=== PATIENT | male | born 1970 | race Caucasian/White ===

== ENCOUNTER 2021-05-16 23:35 | Emergency (ER) | payer OTHER, SELFPAY ==
--- NOTE | 2021-05-16 23:50 | ER ---
Nurse's Notes [facility] Name: Cedric Carrizales Age: 50 yrs Sex: Male : 1970 Arrival Date: 05/16/2021 Time: 23:38 Bed 8 Private MD: Diagnosis: Dog bite to right forearm Presentation: 05/16 23:48 Chief complaint: Patient states: he was bit by his dog approx 30 minutes ago receiving bb puncture wounds to the right forearm. Coronavirus screen: At this time, the client does not indicate any symptoms associated with coronavirus-19. Ebola Screen: No symptoms or risks identified at this time. Initial Sepsis Screen: Does the patient meet any 2 criteria? No. Patient's initial sepsis screen is negative. Does the patient have a suspected source of infection? No. Patient's initial sepsis screen is negative. Risk Assessment: Do you want to hurt yourself or someone else? Patient reports no desire to harm self or others. Onset of symptoms was May 16, 2021. 23:48 Method Of Arrival: Ambulatory bb 23:48 Acuity: KELSIE 5 bb Triage Assessment: 23:49 Bite description: bite sustained to right arm by a dog, animal information: bb vaccination(s) is current. General: Appears in no apparent distress. Behavior is calm, cooperative. Pain: Complains of pain in right arm Pain currently is 3 out of 10 on a pain scale. Neuro: Level of Consciousness is awake, alert, obeys commands, Oriented to person, place, time, situation. Cardiovascular: Capillary refill < 3 seconds Patient's skin is warm and dry. Respiratory: Airway is patent Respiratory effort is even, unlabored, Respiratory pattern is regular. GI: No signs and/or symptoms were reported involving the gastrointestinal system. Derm: Skin is pink, warm \T\ dry. Wound noted right arm. Musculoskeletal: Circulation, motion, and sensation intact. Historical: - Allergies: 23:49 Codeine; bb - Home Meds: 23:49 losartan-hydrochlorothiazide oral [Active]; bb - PMHx: 23:49 Hypertensive disorder; bb - PSHx: 23:49 Vasectomy; bb - Immunization history:: Adult Immunizations up to date, Last tetanus immunization: < 5 years ago. - Social history:: Smoking status: Patient denies any tobacco usage or history of. Screenin/11 00:11 Abuse screen: Denies threats or abuse. Nutritional screening: No deficits noted. bb Tuberculosis screening: No symptoms or risk factors identified. Fall Risk None identified. Assessment: 00:08 Reassessment: No changes from previously documented assessment. wounds cleansed with bb betadine, antibiotic ointment applied, covered with non-adherent pad, kerlix and kylie wrap pt tolerated well. [place] [employer] at bedside. Pt verbalized understanding of and agrees to plan of care discharge instructions given pt ambulated with steady gait to exit. Vital Signs: 05/16 23:48 BP 156 / 88; Pulse 81; Resp 16 S; Temp 98.9(O); Pulse Ox 98% on R/A; Weight 88.45 kg bb (R); Height 5 ft. 10 in. (177.80 cm) (R); Pain 3/10; 23:48 Body Mass Index 27.98 (88.45 kg, 177.80 cm) bb ED Course: 23:38 Patient arrived in ED. cf2 23:41 Hudson Campos MD is Attending Physician. sp3 23:49 Triage completed. bb 23:49 Arm band placed on Patient placed in an exam room, on a stretcher, on pulse oximetry. bb 23:54 Seble Mahmood RN is Primary Nurse. dc2 05/17 00:11 Patient has correct armband on for positive identification. bb 00:11 No provider procedures requiring assistance completed. Patient did not have IV access bb during this emergency room visit. 00:11 Wound care: to puncture located on right arm was cleaned with Betadine, dressed with bb Neosporin, Kerlix, kylie wrap. Administered Medications: No medications were administered Outcome: 05/16 23:49 Discharge ordered by . sp3 05/17 00:11 Discharged to home ambulatory. bb Condition: stable Discharge instructions given to patient, Instructed on discharge instructions, follow up and referral plans. medication usage, wound care, Demonstrated understanding of instructions, follow-up care, medications, wound care, Prescriptions given X 1. 00:13 Patient left the ED. bb Signatures: Shadia King RN RN bb Chris De cf2 Hudson Campos MD MD sp3 Seble Mahmood RN RN dc2
--- NOTE | 2021-05-16 23:50 | EDPHYS ---
Physician Documentation [facility] Name: Cedric Carrizales Age: 50 yrs Sex: Male : 1970 Arrival Date: 05/16/2021 Time: 23:38 Bed 8 Private MD: ED Physician Hudson Campos HPI: 05/16 23:46 This 50 yrs old Male presents to ER via Unassigned with complaints of Dog sp3 Bite. 23:46 50-year-old male with history of hypertension presents to the ED for single dog bite to sp3 the right forearm after trying to restrain dog from getting it adult food. Dog has not previously done this but has had all of his vaccinations. Patient states he has 2 wounds in his right forearm. Patient has no pain on active range of motion complains of no numbness or tingling states that the amount of bleeding was minimal. Last tetanus was approximately 2 years ago.. Historical: - Allergies: 23:49 Codeine; bb - Home Meds: 23:49 losartan-hydrochlorothiazide oral [Active]; bb - PMHx: 23:49 Hypertensive disorder; bb - PSHx: 23:49 Vasectomy; bb - Immunization history:: Adult Immunizations up to date, Last tetanus immunization: < 5 years ago. - Social history:: Smoking status: Patient denies any tobacco usage or history of. ROS: 23:47 Constitutional: Negative for fever, chills, and weight loss, Eyes: Negative for injury, sp3 pain, redness, and discharge, Neck: Negative for injury, pain, and swelling, Cardiovascular: Negative for chest pain, palpitations, and edema, Respiratory: Negative for shortness of breath, cough, wheezing, and pleuritic chest pain, Abdomen/GI: Negative for abdominal pain, nausea, vomiting, diarrhea, and constipation, Back: Negative for injury and pain, Neuro: Negative for headache, weakness, numbness, tingling, and seizure, Allergy/Immunology: Negative for hives, rash, and allergies, Endocrine: Negative for neck swelling, polydipsia, polyuria, polyphagia, and marked weight changes. 23:47 All other systems are negative. Exam: 23:47 Constitutional: This is a well developed, well nourished patient who is awake, alert, sp3 and in no acute distress. 23:47 Skin: 2 puncture type wounds present 1 and 0.5 cm and the other 0.2 cm without visualization of tendons. Patient examined and full range of motion. Neurovascular exam distal to the wounds are normal including radial pulse, capillary refill. Patient can make an okay sign without difficulty.. Vital Signs: 23:48 BP 156 / 88; Pulse 81; Resp 16 S; Temp 98.9(O); Pulse Ox 98% on R/A; Weight 88.45 kg bb (R); Height 5 ft. 10 in. (177.80 cm) (R); Pain 09/13; 23:48 Body Mass Index 27.98 (88.45 kg, 177.80 cm) bb MDM: 23:48 Data reviewed: vital signs, nurses notes. ED course: Clean and dress wounds without sp3 repair at this time. I have discussed with patient risks and concerns for flexor tenosynovitis and signs and symptoms to return to the ED. Will place patient on Augmentin and have him follow-up with his PCP.. 23:49 Patient medically screened. sp3 05/16 23:51 Order name: Wound Care sp3 Administered Medications: No medications were administered Disposition Summary: 05/16/21 23:49 Discharge Ordered Location: Home sp3 Condition: Stable sp3 Diagnosis - Dog bite to right forearm sp3 Followup: sp3 - With: Private Physician - When: As needed - Reason: Continuance of care Discharge Instructions: - Discharge Summary Sheet sp3 - Animal Bite, Adult sp3 Forms: - Medication Reconciliation Form sp3 - Thank You Letter sp3 - Antibiotic Education sp3 - Prescription Opioid Use sp3 Prescriptions: - Augmentin 875-125 mg Oral Tablet - take 1 tablet by ORAL route every 12 hours for 10 days; 20 tablet; Refills: 0, sp3 Product Selection Permitted Signatures: Shadia King RN RN Hudson Pena MD MD sp3
[2021-05-17 00:53] VITALS: BP 156/88; TEMP 98.9; O2SAT 98
== END 2021-05-17 00:13 | disposition home or self-care (01) ==
LOC: ER 23:35
DX: S51.851A Open bite of right forearm, initial encounter (principal); W54.0XXA Bitten by dog, initial encounter; Y93.89 Activity, other specified; Y92.9 Unspecified place or not applicable; Z88.6 Allergy status to analgesic agent; I10 Essential (primary) hypertension
CPT/HCPCS: 99283

== ENCOUNTER 2022-09-05 00:23 | Observation (INO) | payer OTHER ==
[2022-09-05] MEDS ORDERED: METOPROLOL TARTRATE 5 MG/5 ML INJ IV ONE (00:54)
[2022-09-05] MEDS ORDERED: NA CHLORIDE 0.9% 1,000 ML ONE ×2 (00:55→01:56)
[2022-09-05] MEDS ORDERED: ASPIRIN 81 MG CHEWABLE TABLET ONE (00:59)
[2022-09-05 01:29] LABS: Absolute Lymphocytes (CBC) 2.7 K/uL (0.7-4.9); Hematocrit 45.8 % (39.6-49.0); Lymphocytes % 32.6 % (15.3-44.8); MCV 90.2 fL (80-100); RBC Red Blood Cell Count 5.08 M/uL (4.33-5.43)
[2022-09-05 01:34] LABS: SARS-CoV-2 Antigen Rapid Res Negative (Negative)
[2022-09-05 01:47] LABS: Bilirubin Direct 0.2 mg/dL (0-0.2); Bilirubin Total 1.4 mg/dL (0.2-1.0); Magnesium 2.4 mg/dL (1.6-2.4); Potassium 3.2 mmol/L (3.5-5.1); Protein, Total 7.2 g/dL (6.4-8.2); Thyroid Stimulating Hormone 2.68 uIU/mL (0.358-3.740); Troponin High Sensitivity 7.5 pg/mL (<58.9)
[2022-09-05] MEDS ORDERED: POTASSIUM 25 MEQ EFFERV TAB ONE (01:56)
[2022-09-05] MEDS ORDERED: DIGOXIN 0.25 MG/ML AMP ONE (01:58)
--- NOTE | 2022-09-05 02:00 | ER ---
Nurse's Notes [facility] Name: Cedric Carrizales Age: 52 yrs Sex: Male : 1970 Arrival Date: 09/05/2022 Time: 00:25 Bed 5 Private MD: Diagnosis: Unspecified atrial fibrillation-New onset Presentation: 09/05 00:45 Chief complaint: Patient states: i worked out around 2100 and about an hour later i lg3 started feeling like my heart was fluttering and having palpitations. denies chest pain, N/V. Coronavirus screen: Client denies travel out of the [place] in the last 14 days. At this time, the client does not indicate any symptoms associated with coronavirus-19. Ebola Screen: No symptoms or risks identified at this time. Initial Sepsis Screen: Does the patient meet any 2 criteria? No. Patient's initial sepsis screen is negative. Does the patient have a suspected source of infection? No. Patient's initial sepsis screen is negative. Risk Assessment: Do you want to hurt yourself or someone else? Patient reports no desire to harm self or others. Onset of symptoms was September 04, 2022 at 22:00. 00:45 Method Of Arrival: Ambulatory lg3 00:45 Acuity: KELSIE 2 lg3 Triage Assessment: 00:47 General: Appears in no apparent distress. uncomfortable, Behavior is cooperative, lg3 anxious. Pain: Denies pain. EENT: No deficits noted. No signs and/or symptoms were reported regarding the EENT system. Neuro: No deficits noted. Rivas Agitation-Sedation Scale (RASS): 0 - Alert and Calm Level of Consciousness is awake, alert, obeys commands, Oriented to person, place, time, situation. Cardiovascular: Reports lightheadedness, Denies shortness of breath, Capillary refill < 3 seconds Clubbing of nail beds is absent JVD is absent Patient's skin is warm and dry. Respiratory: No deficits noted. Reports Airway is patent Trachea midline Respiratory effort is even, unlabored, Respiratory pattern is regular, symmetrical. GI: No deficits noted. No signs and/or symptoms were reported involving the gastrointestinal system. : No deficits noted. No signs and/or symptoms were reported regarding the genitourinary system. Derm: No deficits noted. No signs and/or symptoms reported regarding the dermatologic system. Skin is intact, is healthy with good turgor, Skin is dry, Skin is normal. Musculoskeletal: No deficits noted. No signs and/or symptoms reported regarding the musculoskeletal system. Circulation, motion, and sensation intact. Range of motion: intact in all extremities. 00:49 Cardiovascular: Rhythm is atrial fibrillation with rapid ventricular response. lg3 Historical: - Allergies: 00:47 Codeine; lg3 - Home Meds: 00:47 losartan-hydrochlorothiazide Oral [Active]; lg3 - PMHx: 00:47 Hypertensive disorder; lg3 - PSHx: 00:47 Vasectomy; lg3 - Immunization history:: Adult Immunizations up to date, Client reports receiving the Александр \T\ Александр single-dose vaccine. Flu vaccine is not up to date. - Social history:: Smoking status: Patient denies any tobacco usage or history of. Patient uses alcohol, occasionally. Screenin:02 [facility] ED Fall Risk Assessment (Adult) Score/Fall Risk Level 0 - 2 = Low Risk. Abuse as6 screen: Denies threats or abuse. Denies injuries from another. Nutritional screening: No deficits noted. Tuberculosis screening: No symptoms or risk factors identified. Assessment: 00:36 General: Appears uncomfortable, Behavior is cooperative, anxious. Pain: Complains of ha1 pain in chest Pain does not radiate. Pain currently is 4 out of 10 on a pain scale. Pain began suddenly. Neuro: Level of Consciousness is awake, alert, obeys commands, Oriented to person, place, time, situation. Cardiovascular: Reports chest pain, Heart tones S1 S2 present Capillary refill < 3 seconds Patient's skin is warm and dry. Rhythm is atrial fibrillation with rapid ventricular response. Respiratory: Airway is patent Respiratory effort is even, unlabored, Respiratory pattern is regular, symmetrical. GI: No signs and/or symptoms were reported involving the gastrointestinal system. Musculoskeletal: Circulation, motion, and sensation intact. Range of motion: intact in all extremities. 01:30 Reassessment: Patient and/or family updated on plan of care and expected duration. Pain ha1 level reassessed. Patient is alert, oriented x 3, equal unlabored respirations, skin warm/dry/pink. care provider in the room Patient states symptoms have improved. Vital Signs: 00:45 BP 117 / 104; Pulse 180; Resp 19 S; Temp 97.8; Pulse Ox 97% on R/A; Weight 88.45 kg lg3 (R); Height 5 ft. 10 in. (177.80 cm) (R); Pain 0/10; 00:53 BP 117 / 89; Pulse 168; Resp 19 S; Pulse Ox 97% ; ha1 00:58 BP 128 / 90; Pulse 133; Resp 18 S; Pulse Ox 97% on R/A; ha1 01:00 BP 128 / 90; Pulse 122; Resp 15 S; Pulse Ox 98% on R/A; as6 01:10 BP 125 / 98; Pulse 133; Resp 19 S; Pulse Ox 98% on R/A; ha1 01:15 BP 118 / 91; Pulse 122; Resp 16 S; Pulse Ox 98% on R/A; ha1 01:30 BP 106 / 76; Pulse 132; Resp 16 S; Pulse Ox 96% on R/A; ha1 01:59 Pulse 129; Resp 15 S; Pulse Ox 97% on R/A; as6 02:11 BP 129 / 82; Pulse 118; Resp 13 S; Pulse Ox 98% on R/A; as6 02:45 BP 121 / 78; Pulse 113; Resp 14 S; Pulse Ox 96% on R/A; as6 00:45 Body Mass Index 27.98 (88.45 kg, 177.80 cm) lg3 ED Course: 00:25 Patient arrived in ED. ag3 00:30 Dontae Rdz NP is PHCP. pm1 00:30 Mundo Pa MD is Attending Physician. pm1 00:38 Baldo Schneider, LEILA is Primary Nurse. as6 00:47 Triage completed. lg3 00:47 Arm band placed on right wrist. lg3 00:49 EKG done, by ecological technical officer. reviewed by Dontae Rdz NP. lg3 00:52 Inserted saline lock: 18 gauge in right antecubital area, using aseptic technique. as6 Blood collected. 01:02 Bed in low position. Call light in reach. Side rails up X2. Adult w/ patient. Client as6 placed on continuous cardiac and pulse oximetry monitoring. NIBP monitoring applied. Warm blanket given. 01:02 Patient maintains SpO2 saturation greater than 95% on room air. as6 01:08 XRAY Chest (1 view) In Process Unspecified. EDMS 01:59 Lance, Thanh, MD is Hospitalizing Provider. pm1 02:00 No provider procedures requiring assistance completed. Patient admitted, IV remains in as6 place. Administered Medications: 00:50 Drug: NS 0.9% 1000 ml Route: IV; Rate: 1000 ml; Site: right antecubital; as6 02:55 Follow up: Response: No adverse reaction; IV Status: Completed infusion; IV Intake: as6 1000ml 00:53 Drug: Metoprolol 5 mg Route: IVP; Site: right antecubital; as6 00:58 Drug: Metoprolol 5 mg Route: IVP; Site: right antecubital; as6 01:00 Drug: Aspirin Chewable Tablet 324 mg Route: PO; as6 02:55 Follow up: Response: No adverse reaction as6 01:10 Drug: Metoprolol 5 mg Route: IVP; Site: right antecubital; ha1 02:55 Follow up: Response: No adverse reaction as6 01:59 Drug: Potassium Effervescent Tablet 50 mEq Route: PO; as6 02:56 Follow up: Response: No adverse reaction as6 01:59 Drug: NS 0.9% 1000 ml Route: IV; Rate: 1000 ml; Site: right antecubital; as6 02:56 Follow up: Response: No adverse reaction; IV Status: Completed infusion; IV Intake: as6 1000ml 01:59 Drug: Digoxin 0.5 mg Route: IVP; Site: right antecubital; as6 02:56 Follow up: Response: No adverse reaction as6 02:32 Drug: Metoprolol 50 mg Route: PO; ha1 02:56 Follow up: Response: No adverse reaction as6 Medication: 02:00 VIS not applicable for this client. as6 Intake: 02:55 IV: 1000ml; Total: 1000ml. as6 02:56 IV: 1000ml; Total: 2000ml. as6 Outcome: 02:00 Decision to Hospitalize by Provider. pm1 02:00 Condition: stable as6 02:00 Instructed on the need for admit. 02:55 Admitted to Tele accompanied by tech, family with patient, via wheelchair, room 412, as6 with chart, Report called to Clayton DEE 03:02 Patient left the ED. as6 Signatures: Dispatcher [employer] EDSD Dontae Rdz, JEFF ASBESTOS SHINGLE INSPECTOR pm1 Jenni Singh ag3 Ronda Arevalo, RN RN lg3 Baldo Schneider, LEILA RN as6 Loulou Carrillo RN RN ha1 Corrections: (The following items were deleted from the chart) 01:25 00:53 BP 117 / 89; Pulse 137bpm; Resp 19bpm; Spontaneous; Pulse Ox 97%; ha1 ha1
--- NOTE | 2022-09-05 02:00 | EDPHYS ---
Physician Documentation [facility] Name: Cedric Carrizales Age: 52 yrs Sex: Male : 1970 Arrival Date: 09/05/2022 Time: 00:25 Bed 5 Private MD: ED Physician Mundo Pa HPI: 09/05 00:59 This 52 yrs old Male presents to ER via Ambulatory with complaints of Palpitations. pm1 00:59 The patient presents with a history of fluttering heart beat. Context: The symptoms pm1 occur at rest. Onset: The symptoms/episode began/occurred yesterday, at 22:00, 1 hour after finishing his workout on the elliptical machine. Duration: The patient or guardian reports a single episode, that is still ongoing. Modifying factors: The symptoms are aggravated by nothing. The symptoms are alleviated by nothing. Associated signs and symptoms: The patient has no apparent associated signs or symptoms, Pertinent positives: lightheaded, Pertinent negatives: chest pain, shortness of breath. The patient has not experienced similar symptoms in the past. The patient has not recently seen a physician. Historical: - Allergies: 00:47 Codeine; lg3 - Home Meds: 00:47 losartan-hydrochlorothiazide Oral [Active]; lg3 - PMHx: 00:47 Hypertensive disorder; lg3 - PSHx: 00:47 Vasectomy; lg3 - Immunization history:: Adult Immunizations up to date, Client reports receiving the Александр \T\ Александр single-dose vaccine. Flu vaccine is not up to date. - Social history:: Smoking status: Patient denies any tobacco usage or history of. Patient uses alcohol, occasionally. ROS: 00:59 Constitutional: Negative for fever, chills, and weight loss. pm1 00:59 Respiratory: Negative for shortness of breath, cough, wheezing, and pleuritic chest pain, Abdomen/GI: Negative for abdominal pain, nausea, vomiting, diarrhea, and constipation, Back: Negative for injury and pain, MS/Extremity: Negative for injury and deformity, Skin: Negative for injury, rash, and discoloration. 00:59 Neuro: Negative for headache, weakness, numbness, tingling, and seizure. 00:59 Cardiovascular: Positive for palpitations, Negative for chest pain, edema. 00:59 All other systems are negative. Exam: 00:59 Constitutional: This is a well developed, well nourished patient who is awake, alert, pm1 and in no acute distress. Head/Face: Normocephalic, atraumatic. 00:59 Back: No spinal tenderness. No costovertebral tenderness. Full range of motion. Skin: Warm, dry with normal turgor. Normal color with no rashes, no lesions, and no evidence of cellulitis. MS/ Extremity: Pulses equal, no cyanosis. Neurovascular intact. Full, normal range of motion. 00:59 Eyes: Exam is negative for acute changes, Extraocular movements: no acute changes. 00:59 ENT: Exam is negative for acute changes, Mouth: no acute changes, Lips: normal, moist, Oral mucosa: normal, pink and intact, moist. 00:59 Cardiovascular: Rate: tachycardic, Rhythm: irregular, Pulses: no pulse deficits are appreciated, Heart sounds: normal, normal S1and S2. 00:59 Respiratory: Exam negative for acute changes, respiratory distress, shortness of breath, Breath sounds: are clear throughout. 00:59 Abdomen/GI: Exam negative for acute changes, Inspection: abdomen appears normal, Palpation: abdomen is soft and non-tender, in all quadrants. 00:59 Neuro: Exam negative for acute changes, Orientation: is normal, Mentation: is normal, Motor: is normal, moves all fours. Vital Signs: 00:45 BP 117 / 104; Pulse 180; Resp 19 S; Temp 97.8; Pulse Ox 97% on R/A; Weight 88.45 kg lg3 (R); Height 5 ft. 10 in. (177.80 cm) (R); Pain 0/10; 00:53 BP 117 / 89; Pulse 168; Resp 19 S; Pulse Ox 97% ; ha1 00:58 BP 128 / 90; Pulse 133; Resp 18 S; Pulse Ox 97% on R/A; ha1 01:00 BP 128 / 90; Pulse 122; Resp 15 S; Pulse Ox 98% on R/A; as6 01:10 BP 125 / 98; Pulse 133; Resp 19 S; Pulse Ox 98% on R/A; ha1 01:15 BP 118 / 91; Pulse 122; Resp 16 S; Pulse Ox 98% on R/A; ha1 01:30 BP 106 / 76; Pulse 132; Resp 16 S; Pulse Ox 96% on R/A; ha1 01:59 Pulse 129; Resp 15 S; Pulse Ox 97% on R/A; as6 02:11 BP 129 / 82; Pulse 118; Resp 13 S; Pulse Ox 98% on R/A; as6 02:45 BP 121 / 78; Pulse 113; Resp 14 S; Pulse Ox 96% on R/A; as6 00:45 Body Mass Index 27.98 (88.45 kg, 177.80 cm) lg3 MDM: 00:37 Patient medically screened. pm1 01:03 Data reviewed: vital signs. pm1 01:03 Differential diagnosis: arrythmia, dehydration, atrial fibrillation. pm1 01:22 ED course: CHADS2-VASc score = 1 therefore ASA or oral anticoagulation. pm1 01:58 Counseling: I had a detailed discussion with the patient and/or guardian regarding: the pm1 historical points, exam findings, and any diagnostic results supporting the discharge/admit diagnosis, lab results, radiology results, the need for further work-up and treatment in the hospital. 09/05 00:46 Order name: Basic Metabolic Panel; Complete Time: 01:48 pm09/05 00:46 Order name: CBC with Diff; Complete Time: 01:40 pm09/05 00:46 Order name: LFT's; Complete Time: 01:48 pm09/05 00:46 Order name: Magnesium; Complete Time: 01:48 pm09/05 00:46 Order name: NT PRO-BNP; Complete Time: 01:48 pm09/05 00:46 Order name: PT-INR; Complete Time: 01:40 pm09/05 00:46 Order name: Troponin HS; Complete Time: 01:48 pm09/05 00:46 Order name: XRAY Chest (1 view) pm09/05 00:46 Order name: EKG; Complete Time: 00:47 pm09/05 00:46 Order name: Cardiac monitoring; Complete Time: 00:47 pm09/05 00:46 Order name: EKG - Nurse/Tech; Complete Time: 00:47 pm09/05 00:46 Order name: IV Saline Lock; Complete Time: 00:54 pm09/05 00:46 Order name: Labs collected and sent; Complete Time: 00:54 pm09/05 00:46 Order name: O2 Per Protocol; Complete Time: 00:54 pm1 09/05 00:46 Order name: O2 Sat Monitoring; Complete Time: 00:54 pm1 09/05 00:46 Order name: SARS RAPID; Complete Time: 01:40 pm1 09/05 01:18 Order name: Thyroid Stimulating Hormone; Complete Time: 01:48 EDMS Administered Medications: 00:50 Drug: NS 0.9% 1000 ml Route: IV; Rate: 1000 ml; Site: right antecubital; as6 02:55 Follow up: Response: No adverse reaction; IV Status: Completed infusion; IV Intake: as6 1000ml 00:53 Drug: Metoprolol 5 mg Route: IVP; Site: right antecubital; as6 00:58 Drug: Metoprolol 5 mg Route: IVP; Site: right antecubital; as6 01:00 Drug: Aspirin Chewable Tablet 324 mg Route: PO; as6 02:55 Follow up: Response: No adverse reaction as6 01:10 Drug: Metoprolol 5 mg Route: IVP; Site: right antecubital; ha1 02:55 Follow up: Response: No adverse reaction as6 01:59 Drug: Potassium Effervescent Tablet 50 mEq Route: PO; as6 02:56 Follow up: Response: No adverse reaction as6 01:59 Drug: NS 0.9% 1000 ml Route: IV; Rate: 1000 ml; Site: right antecubital; as6 02:56 Follow up: Response: No adverse reaction; IV Status: Completed infusion; IV Intake: as6 1000ml 01:59 Drug: Digoxin 0.5 mg Route: IVP; Site: right antecubital; as6 02:56 Follow up: Response: No adverse reaction as6 02:32 Drug: Metoprolol 50 mg Route: PO; ha1 02:56 Follow up: Response: No adverse reaction as6 Disposition: 03:24 Co-signature as Attending Physician, Mundo Pa MD I reviewed the patient's care rt provided by the Advanced Practice Provider and agree with the diagnosis and treatment plan. Disposition Summary: 09/05/22 02:00 Hospitalization Ordered Hospitalization Status: Observation pm1 Provider: Thanh Lucas pm1 [facility] pm1 Condition: Stable pm1 Problem: new pm1 Symptoms: have improved pm1 Bed/Room Type: Standard pm1 Room Assignment: 412(09/05/22 02:44) cg Diagnosis - Unspecified atrial fibrillation - New onset pm1 Forms: - Medication Reconciliation Form pm1 - SBAR form pm1 Signatures: Dispatcher [employer] EDKoki Reddy RN RN cg Dontae Rdz, CAREER DEVELOPMENT DIRECTOR CAREER DEVELOPMENT DIRECTOR pm1 Ronda Arevalo RN RN lg3 Baldo Schneider RN RN as6 Loulou Carrillo RN RN ha1 Mundo Pa MD MD rt Corrections: (The following items were deleted from the chart) 01:18 00:51 THYROID STIMULAT HORMONE+C.LAB.BRZ ordered. EDIA EDMS 02:44 02:00 pm1 cg
[2022-09-05] MEDS ORDERED: METOPROLOL XL 50 MG TAB PO ONE (02:34)
--- NOTE | 2022-09-05 02:54 | P.HP ---
Certification for Inpatient Patient admitted to: Observation With expected LOS: <2 Midnights Patient will require the following post-hospital care: None Practitioner: I am a practitioner with admitting privileges, knowledge of patient current condition, hospital course, and medical plan of care. Services: Services provided to patient in accordance with Admission requirements found in Title 42 Section 412.3 of the Code of Federal Regulations <Jass Darling Adelso - Last Filed: 09/05/22 02:46> Patient History Date of Service: 09/05/22 Reason for admission: AF RVR History of Present Illness: 52 YOM with hx of HTN presented to ED with complaint of palpitations, dyspnea after a working out around 2100 this evening. Upon arrival to ED pt was in AF RVR with rate around 180. Labs were only remarkable for K-3.2 which was replaced. He was given IV lopressor x3, digoxin IV x1, and PO lopressor 50mg x1 with improvement in rate. BP remained stable. Patent reports he drinks about 2 or 3 glasses of iced tea daily, denies hx PAT or recreational drug use. Will admit for further eval/mgmt. - Past Medical/Surgical History -: HTN -: Vasectomy Psychosocial/ Personal History: Works at [employer], lives at home with /children. - Family History Family History: Reviewed- Non-Contributory - Social History Smoking Status: Never smoker Alcohol use: No CD- Drugs: No Caffeine use: Yes Place of Residence: Home <Jass Darling Car Darden - Last Filed: 09/05/22 02:46> Date of Service: 09/05/22 <Thanh Lucas - Last Filed: 09/05/22 14:01> Review of Systems 10-point ROS is otherwise unremarkable Respiratory: Shortness of Breath, SOB with Excertion Cardiovascular: Palpitations <Jass Darling - Last Filed: 09/05/22 02:46> Physical Examination - Physical Exam General: Alert, In no apparent distress, Oriented x3 HEENT: Atraumatic, PERRLA, Mucous membr. moist/pink, EOMI, Sclerae nonicteric Neck: Supple, 2+ carotid pulse no bruit, No LAD, Without JVD or thyroid abnormality Respiratory: Clear to auscultation bilaterally, Normal air movement Cardiovascular: Normal S1 S2, Irregular heart rate/rhythm (Afib RVR rate 120s) Capillary refill: <2 Seconds Gastrointestinal: Normal bowel sounds, No tenderness Musculoskeletal: No tenderness Integumentary: No rashes Neurological: Normal speech, Normal strength at 5/5 x4 extr, Normal tone, Normal affect - Studies Laboratory Data (last 24 hrs) 09/05/22 00:51: PT 11.0, INR 1.00 09/05/22 00:51: WBC 8.10, Hgb 15.5, Hct 45.8, Plt Count 249 09/05/22 00:51: Sodium 139, Potassium 3.2 L, BUN 18, Creatinine 1.43 H, Glucose 186 H, Magnesium 2.4, Total Bilirubin 1.4 H, AST 13 L, ALT 22, Alkaline Phosphatase 58 <Jass Darling - Last Filed: 09/05/22 02:46> - Studies Laboratory Data (last 24 hrs) 09/05/22 00:51: PT 11.0, INR 1.00 09/05/22 00:51: WBC 8.10, Hgb 15.5, Hct 45.8, Plt Count 249 09/05/22 00:51: Sodium 139, Potassium 3.2 L, BUN 18, Creatinine 1.43 H, Glucose 186 H, Magnesium 2.4, Total Bilirubin 1.4 H, AST 13 L, ALT 22, Alkaline Phosphatase 58 <Thanh Lucas - Last Filed: 09/05/22 14:01> Assessment and Plan - Plan Assessment New onset atrial fibrillation with rapid ventricular response HTN Plan New onset atrial fibrillation with rapid ventricular response Rate improved with beta gilberto, continue lopressor BID. Cardiology consult in place, echo ordered. potassium replaced, mag normal, TSH normal. No known PAT hx, denies recreational drug use. monitor on tele. CHADS-VASc score 1 for HTN, given ASA. HTN Continue metoprolol. DVT PPX: lovenox Code status: Full Discharge Plan: Home Plan to discharge in: 24 Hours - Advance Directives Does patient have a Living Will: No Does patient have a Durable POA for Healthcare: No - Code Status/Comfort Care Code Status Assessed: Yes (Full code) Critical Care: No Time Spent Managing Pts Care (In Minutes): 50 <Jass Darling - Last Filed: 09/05/22 02:46> Physician Review: Patient Assessed, Agree with Above Assessment and Plan <Thanh Lucas - Last Filed: 09/05/22 14:01>
[2022-09-05] MEDS ORDERED: ONDANSETRON 4 MG/2 ML VIAL IV PRN (03:17)
[2022-09-05 03:59] VITALS: BMI 27.9
[2022-09-05] MEDS: Ringers Lactate 1,000 ML IV SCH ×3 (04:08→23:17)
[2022-09-05] MEDS ORDERED: INFLUENZA VACCINE (for 6+ mo) 0.5 ML DOSE IMVAC ONE (08:00)
[2022-09-05] MEDS ORDERED: POTASSIUM CL SA 10 MEQ TAB PO ONE (09:00)
[2022-09-05] MEDS: ENOXAPARIN 40 MG/0.4 ML SQ SCH (09:41)
[2022-09-05] MEDS: ASPIRIN EC 81 MG TAB PO SCH (09:41)
--- NOTE | 2022-09-05 12:26 | RAD REPORT ---
EXAM DESCRIPTION: RAD - Chest Single View - 09/05/2022 1:04 am CLINICAL HISTORY: 52 years, Male, Chest pain COMPARISON: None. FINDINGS: Single view of the chest was obtained portable. No prior films are available for compariso n. The cardiomediastinal silhouette demonstrate to be unremarkable. The heart is not enlarged. The th oracic aorta is unremarkable. The pulmonary vasculature is normal distribution. Costophrenic angles a re sharp. No areas of consolidation or masses are seen. The rest of the soft tissue and bony stru ctures demonstrate to be unremarkable. IMPRESSION: NO ACUTE CARDIOPULMONARY DISEASE SEEN. Electronically signed by: Dionicio Goodman MD 09/05/2022 1:14 AM ACCOUNT EXECUTIVE SALES REPRESENTATIVE Due to temporary technical issues with the PACS/Fluency reporting system, reports are being signed by the in house radiologists without review as a courtesy to insure prompt reporting. The interpreting radiologist is fully responsible for the content of the report.
--- NOTE | 2022-09-05 13:10 | CON ---
Date of Consultation: 09/05/2022 Reason For Consultation: Elevated BUN and creatinine. History Of Present Illness: This is a pleasant 52-year-old gentleman with significant past medical h istory of hypertension. No kidney disease. No arthritis. No heart disease. The patient apparently came to the hospital with a diagnosis of AFib with RVR, found to have elevation in BUN and creatinin e. For that reason, we have been consulted. The patient denied taking any nonsteroidal. No recent IV contrast. No recent change in his medication. The patient lost lab almost 1 year without any abn ormality according to the patient. Past Medical History: Includes hypertension. Allergies: TO CODEINE. Family History: Positive for hypertension. Social History: Denied smoking. Occasional alcohol. Denied drugs abuse. Past Surgical History: Noncontributory. Review of Systems: Head and Neck: No red eye. No ear pain. GI: No nausea. No vomiting. : No polyuria. No dysuria. No hematuria. Associate Financial Advisor: Not applicable. Respiratory: No shortness of breath. Cardiovascular: Has palpitation. Endocrine: No polydipsia. Skin: No rash. Neuro: No weakness. Musculoskeletal: No joint pain. Home Medications: Include losartan and hydrochlorothiazide. Current Medication In The Hospital: Include aspirin, Lovenox, metoprolol, Zofran. Physical Examination: Vital Signs: When I saw the patient; blood pressure 130/79, pulse of 88, afebrile. Chest: Clear to auscultation. Heart: S1, S2. Irregular. Abdomen: Soft, nontender. Extremities: No edema. Neurologic: Alert. No focality. Laboratory Data: Hemoglobin 15.5. Sodium 139, potassium 3.2, bicarb 28, BUN 18, creatinine 1.4, trace cium 9.1. GFR of 59. TSH 2.6. BNP of 16. Current Medications: As above. Assessment And Plan: 1.Acute kidney injury, mostly secondary to cardiorenal, secondary to poor perfusion, ATN secondary t o atrial fibrillation and rapid ventricular response, superimposed with ARB and hydrochlorothiazide. No hyperkalemia or acidosis. I am going to go ahead and send for basic workup of renal ultrasound, protein and creatinine, and we will follow up the patient closely. 2.Hypertension, currently controlled, optimal with the presence of acute kidney injury. Avoid hydro chlorothiazide and losartan, and we will follow up. Continue beta-gilberto. 3.Hypokalemia. We will supplement. 4.Atrial fibrillation with rapid ventricular response as by primary. DILIA/DOMITILA Voice ID: [id number] Report ID: [id number]
[2022-09-05 14:40] LABS: Specific Gravity 1.006 (1.005-1.030); Urine Bilirubin NEGATIVE (Negative); Urine Blood Negative (Negative); Urine Clarity Clear (Clear); Urine Color Colorless (Yellow); Urine Glucose NEGATIVE (Negative); Urine Protein NEGATIVE (Negative); Urine Urobilinogen Normal (Normal)
[2022-09-05 14:42] LABS: UR PROTEIN < 5.0 mg/dL (<11.9); Urine Protein/Creatinine Ratio ND ratio (<0.15)
--- NOTE | 2022-09-05 15:00 | RAD REPORT ---
EXAM DESCRIPTION: US - Renal Ultrasound-Complete - 09/05/2022 1:17 pm CLINICAL HISTORY: LESTER COMPARISON: Liver Only dated 03/13/2017 TECHNIQUE: Sonographic grayscale and color flow images of the kidneys and bladder were obtained. FINDINGS: Both kidneys are normal in size, shape and echotexture. The right kidney measures 11.2 centimeter in length. No hydronephrosis, focal mass or perinephric flu id. Incidentally noted lower pole thin-walled anechoic 1.2 centimeter cyst. Numerous small echogenic foci, the largest at the right superior pole, measuring 6 millimeter, without posterior shadowing or twinkling artifact, could relate to vascular echogenicities, less likely small stones. The left kidney measures 10.8 centimeter in length. No hydronephrosis, focal mass or perinephric flui d. The urinary bladder is incompletely distended without gross abnormality seen. IMPRESSION: No hydronephrosis. Small right renal echogenicities, favored to represent vascular echogenicities rather than small ston es.
--- NOTE | 2022-09-05 17:26 | EKG ---
Test Date: 2022-09-05 Test Time: 00:43:52 Special Police: VIOLETTA MEASUREMENT RESULTS: Intervals: Rate: 187 ME: QRSD: 86 QT: 268 QTc: 473 [place]: P: ME: QRS: 29 T: -31 INTERPRETIVE STATEMENTS: Atrial fibrillation with rapid ventricular response with premature ventricular or aberrantly conducted complexes Cannot rule out Inferior infarct, age undetermined Abnormal ECG No previous ECG available for comparison Electronically Signed On 09-05-22 17:25:33 FACILITIES MAINTENANCE ENGINEER by Douglas Hemphill
[2022-09-05] MEDS: SOTALOL HCL 80 MG TAB PO SCH (17:31)
--- NOTE | 2022-09-05 18:29 | CON ---
Date of Consultation: 09/05/2022 Reason For Consultation: Atrial fibrillation with rapid ventricular response. History Of Present Illness: 52-year-old male, history of hypertension, presented with palpitations a long with some shortness of breath started yesterday, presented to the emergency room, found to be in atrial fibrillation with rapid ventricular response. Responded to IV Lopressor. Heart rate is bett er, but still in AFib. Denies having a heavy drinking problem. Past Medical History: Hypertension. Medications: Refer reconciliation sheet for detailed list. Allergies: CODEINE. Family History: No premature coronary artery disease or cancer. Social History: He does not smoke or drink. Does not use any drugs. Review of Systems: All systems were reviewed, they were negative except as mentioned in HPI. Physical Examination: Vital Signs: Reviewed. Head and Neck: Pupils are equal, reactive to light. Intact eye movements. No JVD. No cervical lym phadenopathy. Neck is supple. Thyroid is not enlarged. Lungs: Clear to auscultation bilaterally. No rhonchi, wheezing, or crackles. No accessory muscle u se. Heart: Irregularly irregular. No extra sounds. Abdomen: Soft, nontender. Bowel sounds positive. No organomegaly. No masses or hernia. No rigidi ty or rebound. Extremities: No edema, clubbing, or cyanosis. Intact pulses. Skin: No rash. Neurologic: Alert, awake, oriented x3. No acute focal deficits appreciated. Investigations: BUN 18, creatinine 1.4, and hemoglobin 15.5. TSH is 2.6. Assessment And Recommendation: 1.Atrial fibrillation with rapid ventricular response. His GFR is normal. So, start him on sotalol 80 mg twice a day. After third dose, obtain an EKG, if no QTc prolongation, then he can be released on that and we will re-evaluate tomorrow, and I am going to do a TRACY-guided cardioversion if we have difficulty controlling his heart rate with sotalol. 2.Borderline elevated creatinine. Hydrate with IV fluids and recheck labs. 3. . Replace potassium. SR/MODL Voice ID: [id number] Report ID: [id number]
[2022-09-05] MEDS ORDERED: METOPROLOL TAR 50 MG TAB PO SCH (21:00)
[2022-09-06 03:59] LABS: Absolute Lymphocytes (CBC) 2.4 K/uL (0.7-4.9); Hematocrit 40.8 % (39.6-49.0); Lymphocytes % 29.9 % (15.3-44.8); MCV 90.7 fL (80-100); MPV 7.6 fL (7.6-11.3)
[2022-09-06 04:33] LABS: Magnesium 2.2 mg/dL (1.6-2.4); Potassium 4.2 mmol/L (3.5-5.1); Uric Acid 6.1 mg/dL (3.5-7.2)
[2022-09-06] MEDS: SOTALOL HCL 80 MG TAB PO SCH ×2 (05:22→17:00)
[2022-09-06] MEDS ORDERED: ACETAMINOPHEN 325 MG TABLET PO PRN (05:28)
--- NOTE | 2022-09-06 07:43 | ECHO ---
HEIGHT: 5 ft 10 in WEIGHT: 194 lb 3.2 oz DATE OF STUDY: 09/05/[address]: Jass Darling NP 2-DIMENSIONAL: YES M.MODE: YES DOPPLER: YES COLOR FLOW: YES TDS: PORTABLE: YES DEFINITY: BUBBLE STUDY: DIAGNOSIS: NEW ONSET ATRIAL FIBRILLATION CARDIAC HISTORY: CATHERIZATION: SURGERY: PROSTHETIC VALVE: PACEMAKER: MEASUREMENTS (cm) DIASTOLIC (NORMALS) SYSTOLIC (NORMALS) IVSd 1.1 (0.6-1.2) LA Diam 3.4 (1.9-4.0) LVEF 68% LVIDd 4.3 (3.5-5.7) LVIDs 2.7 (2.0-3.5) %FS 37% LVPWd 1.2 (0.6-1.2) Ao Diam 3.7 (2.0-3.7) 2 DIMENSIONAL ASSESSMENT: RIGHT ATRIUM: NORMAL LEFT ATRIUM: NORMAL RIGHT VENTRICLE: NORMAL LEFT VENTRICLE: NORMAL TRICUSPID VALVE: MILD TRICUSPID REGURGITATION MITRAL VALVE: NORMAL PULMONIC VALVE: MILD PULMONIC INSUFFICIENCY AORTIC VALVE: NORMAL PERICARDIAL EFFUSION: NONE AORTIC ROOT: NORMAL LEFT VENTRICULAR WALL MOTION: NORMAL (ATRIAL FIBRILLATION) DOPPLER/COLOR FLOW: SEE BELOW COMMENTS: 1. NORMAL LEFT VENTRICULAR EJECTION FRACTION 60-65% 2. NORMAL WALL MOTION 3. MILD TRICUSPID REGURGITATION, PULMONIC INSUFFICIENCY 4. ATRIAL FIBRILLATION TECHNOLOGIST: TANGELA SHEEHAN
[2022-09-06] MEDS: ASPIRIN EC 81 MG TAB PO SCH (08:47)
[2022-09-06] MEDS: ENOXAPARIN 40 MG/0.4 ML SQ SCH (08:47)
[2022-09-06] MEDS: Ringers Lactate 1,000 ML IV SCH (09:17)
[2022-09-06 14:14] VITALS: O2SAT 99
--- NOTE | 2022-09-06 14:30 | EKG ---
Test Date: 2022-09-05 Test Time: 21:31:44 Accounts Payable Analyst: 15 MEASUREMENT RESULTS: Intervals: Rate: 70 CT: 118 QRSD: 102 QT: 378 QTc: 408 [place]: P: 10 CT: 118 QRS: 14 T: -13 INTERPRETIVE STATEMENTS: Normal sinus rhythm Normal ECG Compared to ECG 09/05/2022 14:46:17 Atrial fibrillation no longer present Ventricular premature complex(es) no longer present Electronically Signed On 09-06-22 14:28:17 ANTI AIR WARFARE OPERATIONS OFFICER by Douglas Hemphill
--- NOTE | 2022-09-06 14:31 | EKG ---
Test Date: 2022-09-05 Test Time: 14:46:17 Lumber Salvager: VANI MEASUREMENT RESULTS: Intervals: Rate: 108 ME: QRSD: 88 QT: 308 QTc: 412 [place]: P: ME: QRS: 16 T: -1 INTERPRETIVE STATEMENTS: Atrial fibrillation with rapid ventricular response with premature ventricular or aberrantly conducted complexes Abnormal ECG Compared to ECG 09/05/2022 00:43:52 Myocardial infarct finding no longer present Electronically Signed On 09-06-22 14:29:12 BELT BUILDER by Douglas Hemphill
[2022-09-06 16:39] VITALS: BP 141/92; TEMP 97.2
--- NOTE | 2022-09-06 17:55 | P.DS ---
Admission Date: 09/05/22 Discharge Date: 09/06/22 Disposition: ROUTINE DISCHARGE Discharge Condition: GOOD Reason for Admission: AF RVR Consultations: 1. Cardiology 2. Nephrology Hospital Course: DIAGNOSES: # Atrial Fibrillation with Rapid Ventricular Response # KDIGO Stage I Acute Kidney Injury - resolved # Hypertension # Renal Cyst (1.2 cm) # Small Right Renal Eechogenicities HOSPITAL COURSE: Mr. Cedric Carrizales is a pleasant 52 year old male with a past medical history significant for hypertension who was admitted to the [facility] on 09/05/2022 for palpitations and dyspnea. He was admitted to the Medicine service. Upon further evaluation, he was found to have atrial fibrillation with rapid ventricular response. His troponin trend was 7.5 -> 13.3 -> 14.3. His chest x-ray revealed, "no acute cardiopulmonary disease seen." His transthoracic echocardiogram revealed, "1. normal left ventricular ejection fraction 60-65% 2. normal wall motion 3. mild tricuspid regurgitation, pulmonic insufficiency 4. atrial fibrillation." Cardiology was consulted and he was evaluated by Dr. Hemphlil. He recommended starting sotalol 80 mg BID. He recommended obtaining an EKG after three doses of sotalol and discharging if his rhythm and QTc were adequate. This EKG revealed normal sinus rhythm with a QTc interval of 404 msec. He has been cleared for discharge from a Cardiology standpoint. Due to Mr. Carrizales' concerns for too many anti- hypertensives, we discontinued his losartan-hydrochlorothiazide and started losartan at half the dose. Additionally, Nephrology was consulted due to an acute kidney injury. A renal ultrasound was obtained, which revealed, "no hydronephrosis. Small right renal echogenicities, favored to represent vascular echogenicities rather than small stones." His creatinine normalized. He was counseled on these findings and advised to follow-up with Dr. Ferro for further evaluation. He verbalized understanding and agreed to make this appointment. On 09/06/2022, he was seen on rounds and deemed medically stable for discharge. He was discharged with instructions to schedule follow-up appointments with his PCP ([facility]), with Cardiology (Dr. Hemphill), and with Nephrology (Dr. Ferro). He was provided prescriptions for losartan and sotalol. He was given the opportunity to ask questions and reported no further questions. Furthermore, all questions were answered to the best of my ability. A copy of this discharge summary will be sent to the above providers to facilitate continuity of care. Today, I personally spent 25 minutes on his case, of which greater than 50% of the time was spent in patient education, counseling, and coordination of care as described above. Vital Signs/Physical Exam: Temp Pulse Resp BP Pulse Ox 97.2 F 66 16 141/92 H 99 09/06/22 16:00 09/06/22 16:00 09/06/22 16:00 09/06/22 16:00 09/06/22 16:00 Laboratory Data at Discharge: WBC 8.10 K/uL (4.3-10.9) 09/06/22 03:45 Hgb 13.7 g/dL (13.6-17.9) D 09/06/22 03:45 Hct 40.8 % (39.6-49.0) 09/06/22 03:45 Plt Count 211 K/uL (152-406) 09/06/22 03:45 PT 11.0 SECONDS (9.5-12.5) 09/05/22 00:51 INR 1.00 09/05/22 00:51 Sodium 142 mmol/L (136-145) 09/06/22 03:45 Potassium 4.2 mmol/L (3.5-5.1) D 09/06/22 03:45 BUN 13 mg/dL (7-18) 09/06/22 03:45 Creatinine 1.07 mg/dL (0.70-1.30) 09/06/22 03:45 Glucose 109 mg/dL (74-106) H 09/06/22 03:45 Uric Acid 6.1 mg/dL (3.5-7.2) 09/06/22 03:45 Magnesium 2.2 mg/dL (1.6-2.4) 09/06/22 03:45 Total Bilirubin 1.4 mg/dL (0.2-1.0) H 09/05/22 00:51 AST 13 U/L (15-37) L 09/05/22 00:51 ALT 22 U/L (16-61) 09/05/22 00:51 Alkaline Phosphatase 58 U/L (45-117) 03/02/23 00:51 Home Medications: Aspirin [Aspirin EC 81 MG] 81 mg PO DAILY #1 09/06/22 Losartan Potassium 50 mg PO DAILY #30 tab 09/06/22 Sotalol HCl [Betapace*] 80 mg PO BID 6AM 6PM #60 tab 09/06/22 New Medications: Aspirin [Aspirin EC 81 MG] 81 mg PO DAILY #1 Sotalol HCl [Betapace*] 80 mg PO BID 6AM 6PM #60 tab Losartan Potassium 50 mg PO DAILY #30 tab Physician Discharge Instructions: 1. Please call and schedule a follow-up appointment with your PCP ([facility]) in 3-5 days 2. Please call and schedule a follow-up appointment with Cardiology (Dr. Hemphill) in 5-7 days 3. Please call and schedule a follow-up appointment with Nephrology (Dr. Ferro) in 5-7 days - As we discussed, please have him follow-up on your kidney cyst and spots on your kidneys - Please have your medications adjusted and refilled by your outpatient providers Diet: AHA Activity: Ad rashida Followup: Douglas Hemphill MD [ACTIVE - CAN ADMIT] - Unknown,U [Primary Care Provider] - Annie Ferro MD [ACTIVE - CAN ADMIT] - Time spent managing pt's care (in minutes): 25
--- NOTE | 2022-09-06 19:11 | PN ---
Date of Progress Note: 09/06/2022 Subjective: Seen at bedside, doing clinically well, still in sinus. Review of Systems: No chest pain, shortness of breath, orthopnea, or cough. No nausea, vomiting, or diarrhea. All othe r systems reviewed and they were negative. Physical Examination: Vital Signs: Reviewed. Head And Neck: Pupils are equal and reactive to light. Intact eye movements. No JVD. No cervical lymphadenopathy. Neck is supple. Thyroid is not enlarged. Lungs: Clear to auscultation bilaterally. No rhonchi, wheezing, or crackles. No accessory muscle u se. Heart: Regular rate and rhythm. No extra sounds. Abdomen: Soft, nontender. Bowel sounds positive. No organomegaly. No masses or hernia. No rigidi ty or rebound. Extremities: No edema, clubbing, or cyanosis. Intact pulses. Skin: No rash. Neurologic: Alert, awake, and oriented x3. No acute focal deficits appreciated. Investigations: BUN 13, creatinine 1.07. Hemoglobin is 13.7. Cardiac enzymes are negative. Assessment/recommendation: 1.Atrial fibrillation with rapid ventricular response, converted to sinus rhythm on sotalol. Contin ue current management and after the third dose, check an EKG. If QTc interval is normal, the patient can be released and follow up with me in the office in 4 weeks and continue baby aspirin. 2.Acute renal failure, resolved. Creatinine normalized today. SR/MODL Voice ID: [id number] Report ID: [id number]
--- NOTE | 2022-09-06 22:17 | PN ---
Date of Progress Note: 09/06/2022 Chief Complaint: Acute kidney injury, nonoliguric. Renal function has stabilized. Subjective: The patient denies lower urinary tract symptoms. The patient had ultrasound done, which showed possible renal artery stenosis. The patient will need to follow up with Nephrology Service. The patient is a 52-year-old admitted to the hospital because of atrial fibrillation with rapid vent ricular response. He has history of hypertension. He denies chest pain or coronary artery disease. Denies diabetes. Review of Systems: Denies fever or chills. Physical Examination: Lungs: Clear to auscultation bilaterally. Heart: S1, S2. Abdomen: Soft. Extremities: No edema. Impression And Plan: 1.Acute kidney injury secondary to cardiorenal syndrome secondary to hypoperfusion acute tubular nec rosis. At present the patient has atrial fibrillation with rapid ventricular response. Angiotensin receptor gilberto and hydrochlorothiazide is on hold due to acute kidney injury. Now, hyperkalemia. The patient does not have metabolic acidosis. 2.Hypertension. Blood pressure controlled. Continue medication although HCTZ/losartan is on hold. 3.Hypokalemia. The patient received potassium chloride supplementation. The patient will follow up with Nephrology outpatient. BRO/DOMITILA Voice ID: [id number] Report ID: [id number]
--- NOTE | 2022-09-09 16:47 | EKG ---
Test Date: 2022-09-06 Test Time: 17:42:44 Steam Hoist Operator: TAM MEASUREMENT RESULTS: Intervals: Rate: 64 ID: [id number] QRSD: 96 QT: 392 QTc: 404 [place]: P: -6 ID: [id number] QRS: -13 T: -12 INTERPRETIVE STATEMENTS: Sinus rhythm with fusion complexes Inferior infarct, age undetermined Abnormal ECG Compared to ECG 09/05/2022 21:31:44 Fusion complex(es) now present Myocardial infarct finding now present Electronically Signed On 09-09-22 16:39:54 GRIEF COUNSELLOR by Douglas Hemphill
== END 2022-09-06 18:24 | disposition home or self-care (01) ==
LOC: ER 00:23 → 4TH 02:58
PROVIDERS: ADMIT Internal Medicine; ATTEND Internal Medicine
DX: I48.20 Chronic atrial fibrillation, unspecified (principal); N17.9 Acute kidney failure, unspecified; I10 Essential (primary) hypertension; E87.6 Hypokalemia; N28.1 Cyst of kidney, acquired; Z20.822 Contact with and (suspected) exposure to COVID-19; Z88.6 Allergy status to analgesic agent; Z23 Encounter for immunization
CPT/HCPCS: 96361; 93005 ×3; 93306; 85025 ×2; 80048 ×2; 36415 ×2; 83735 ×2; 82550; 85610; 80076; 84550; 84443; 81003; 82570; 84484 ×3; 83880; 84156; 71045; 90471; 76770; 96375; 96374; 99285; 87811; J1160; Q2035; J1650 ×2; J7120 ×3; J7030 ×2; G0378

== ENCOUNTER 2023-02-10 06:40 | Emergency (ER) | payer OTHER ==
[2023-02-10] MEDS ORDERED: ONDANSETRON 4 MG/2 ML VIAL ONE (07:30)
[2023-02-10] MEDS ORDERED: NA CHLORIDE 0.9% 1,000 ML ONE (07:30)
[2023-02-10 08:23] LABS: Albumin 3.8 g/dL (3.4-5.0); Bilirubin Total 1.7 mg/dL (0.2-1.0); Potassium 4.8 mEq/L (3.5-5.1); Protein, Total 6.8 g/dL (6.4-8.2)
[2023-02-10 08:32] LABS: Absolute Lymphocytes (CBC) 0.9 K/uL (0.7-4.9); Hematocrit 48.4 % (39.6-49.0); MCV 91.1 fL (80-100); MPV 7.8 fL (7.6-11.3); Platelets 194 thou/uL (152-406); RBC Red Blood Cell Count 5.31 M/uL (4.33-5.43); Specific Gravity 1.012 (1.005-1.030); Urine Bilirubin NEGATIVE (Negative); Urine Blood Negative (Negative); Urine Clarity Clear (Clear); Urine Color Colorless (Yellow); Urine Glucose NEGATIVE (Negative); Urine Protein NEGATIVE (Negative); Urine Urobilinogen Normal (Normal); Urine pH 6.5 (5.0-7.0)
--- NOTE | 2023-02-10 09:00 | RAD REPORT ---
EXAM DESCRIPTION: CT - Abdomen Pelvis W Contrast - 02/10/2023 8:39 am CLINICAL HISTORY: ABD PAIN COMPARISON: No comparisons TECHNIQUE: Thin cut axial CT imaging of the abdomen and pelvis was performed following intravenous a dministration of 100 mL Isovue 300. Multiplanar reformats were generated and reviewed. All CT scans are performed using dose optimization technique as appropriate and may include automated exposure control or mA/KV adjustment according to patient size. FINDINGS: No suspicious findings in the lung bases. The liver, spleen, and pancreas show no suspicious findings. Gallbladder and biliary tree are also wi thout suspicious finding. Symmetric renal function is seen with no hydronephrosis or suspicious renal mass. No dilated bowel loops. Colonic diverticulosis. Focal wall thickening and adjacent inflammatory fat s tranding along the proximal sigmoid colon. No free air, localized collections, or fistula. Trace free fluid in the pelvis. No hernia, mass or bulky lymphadenopathy. The urinary bladder is without signif icant finding. No suspicious bony findings. IMPRESSION: Sequelae of acute diverticulitis involving the proximal sigmoid colon. Trace free fluid in the pelvis. No evidence of complications. The findings were communicated to Marichuy Solomon on 02/10/2023 at 08:54 hours.
[2023-02-10] MEDS ORDERED: NA CHLORIDE 0.9% 100 ML ONE (09:27)
[2023-02-10] MEDS ORDERED: CEFTRIAXONE 1000 MG/VIAL ONE (09:27)
[2023-02-10] MEDS ORDERED: METRONIDAZOLE 500mg IVPB 500 MG/100 ML BAG IV ONE (09:27)
--- NOTE | 2023-02-10 10:18 | ER ---
Nurse's Notes [facility] Name: Cedric Carrizales Age: 52 yrs Sex: Male : 1970 Arrival Date: 02/10/2023 Time: 06:40 Bed 15 Private MD: Diagnosis: Diverticulosis of large intestine without perforation or abscess without bleeding Presentation: 02/10 06:54 Chief complaint: Patient states: lower abdominal pain of 5,onset 0000. Coronavirus pf1 screen: Vaccine status: Patient reports receiving the 1st dose of the Covid vaccine. Client denies travel out of the [place] in the last 14 days. At this time, the client does not indicate any symptoms associated with coronavirus-19. Ebola Screen: Patient negative for fever greater than or equal to 101.5 degrees Fahrenheit, and additional compatible Ebola Virus Disease symptoms. Initial Sepsis Screen: Does the patient meet any 2 criteria? No. Patient's initial sepsis screen is negative. Does the patient have a suspected source of infection? No. Patient's initial sepsis screen is negative. Risk Assessment: Do you want to hurt yourself or someone else? Patient reports no desire to harm self or others. 06:54 Method Of Arrival: Wheelchair pf1 06:54 Acuity: KELSIE 3 pf1 10:26 Onset of symptoms is unknown. bp Triage Assessment: 07:00 General: Appears comfortable, Behavior is cooperative, appropriate for age, anxious. bp Pain: Complains of pain in abdomen. EENT: No deficits noted. Neuro: No deficits noted. Cardiovascular: No deficits noted. Respiratory: No deficits noted. GI: Reports upper abdominal pain. : No signs and/or symptoms were reported regarding the genitourinary system. Derm: No deficits noted. Musculoskeletal: No deficits noted. Historical: - Allergies: 06:58 Codeine; pf1 - PMHx: 06:58 Hypertensive disorder; AFIB; pf1 - PSHx: 06:58 Vasectomy; pf1 - Immunization history:: Adult Immunizations up to date, Client reports receiving the Алекасндр \T\ Александр single-dose vaccine. Last tetanus immunization: > 10 years ago Flu vaccine is up to date. - Social history:: Smoking status: Patient denies any tobacco usage or history of. Patient uses alcohol, but reports only rare drinking. Patient/guardian denies using street drugs. - Family history:: not pertinent. - Hospitalizations: : No recent hospitalization is reported. Screenin:00 [facility] ED Fall Risk Assessment (Adult) History of falling in the last 3 months, bp including since admission No falls in past 3 months (0 pts). Abuse screen: Denies threats or abuse. Denies injuries from another. Nutritional screening: No deficits noted. Tuberculosis screening: No symptoms or risk factors identified. Assessment: 07:00 General: SEE TRIAGE NOTE. bp 08:02 Reassessment: PHLEBOTOMY CONTACTED FOR LAB DRAW. bp 09:21 Reassessment: Patient appears in no apparent distress at this time. Patient is alert, bp oriented x 3, equal unlabored respirations, skin warm/dry/pink. 10:24 Reassessment: DC HOME AMBULATORY WITH FAMILY. bp Vital Signs: 06:54 BP 117 / 64; Pulse 57; Resp 18; Temp 97.6; Pulse Ox 100% on R/A; Weight 86.18 kg; pf1 Height 5 ft. 10 in. ; Pain 5/10; 09:21 BP 122 / 67; Pulse 80; Resp 16; Pulse Ox 96% ; bp 10:24 BP 146 / 74; Pulse 78; Resp 16; Pulse Ox 100% ; bp 06:54 Body Mass Index 27.26 (86.18 kg, 177.8 cm) pf1 06:54 Pain Scale: Adult pf1 ED Course: 06:41 Patient arrived in ED. am2 06:57 Triage completed. pf1 07:00 Patient has correct armband on for positive identification. Bed in low position. Call bp light in reach. Side rails up X2. 07:01 Perry Wheeler MD is Attending Physician. rn 07:07 Adrián Curry, LEILA is Primary Nurse. bp 07:12 Missed attempt(s): 22 gauge in right wrist. bc6 07:28 Inserted saline lock: 20 gauge in right forearm, using aseptic technique. Blood bp collected. 08:40 CT Abd/Pelvis - IV Contrast Only In Process Unspecified. EDMS 10:24 Provided Education on: N/A. bp 10:25 No provider procedures requiring assistance completed. IV discontinued, intact, bp bleeding controlled, No redness/swelling at site. Pressure dressing applied. Administered Medications: 07:27 Drug: NS 0.9% IV 1000 ml Route: IV; Rate: 1 bolus; Site: right forearm; bp 10:26 Follow up: IV Status: Completed infusion; IV Intake: 1000ml bp 07:27 Drug: Ondansetron IVP 4 mg Route: IVP; Site: right forearm; bp 10:26 Follow up: Response: No adverse reaction bp 09:09 Not Given (Duplicate Order): Ciprofloxacin IVPB 400 mg 200 ml IVPB once over 60 mins rn 09:20 Drug: metroNIDAZOLE IVPB 500 mg Volume: 100 ml; Route: IVPB; Rate: 200 ml/hr; Infused bp Over: 30 mins; Site: right forearm; 10:26 Follow up: IV Status: Completed infusion; IV Intake: 100ml bp 09:21 Drug: Rocephin IV 1 grams Route: IV; Rate: calculated rate; Site: right forearm; bp 10:26 Follow up: IV Status: Completed infusion; IV Intake: 100ml bp Medication: 07:00 VIS not applicable for this client. bp Intake: 10:26 IV: 100ml; Total: 100ml. bp 10:26 IV: 1000ml; Total: 1100ml. bp 10:26 IV: 100ml; Total: 1200ml. bp Outcome: 10:18 Discharge ordered by . rn 10:25 Discharged to home ambulatory, with family. bp 10:25 Condition: stable 10:25 Discharge instructions given to patient, Instructed on discharge instructions, follow up and referral plans. medication usage, Demonstrated understanding of instructions, follow-up care, medications, Prescriptions given X 3. 10:27 Patient left the ED. bp Signatures: Dispatcher [employer] EDMS Perry Wheeler MD MD rn Moreno, Amanda amAdrián Bird RN RN bp Lynette Tafoya RN RN pf1 Sara Martinez 6
--- NOTE | 2023-02-10 10:18 | EDPHYS ---
Physician Documentation [facility] Name: Cedric Carrizales Age: 52 yrs Sex: Male : 1970 Arrival Date: 02/10/2023 Time: 06:40 Bed 15 Private MD: ED Physician Perry Wheeler HPI: 02/10 08:08 This 52 yrs old Male presents to ER via Wheelchair with complaints of Abdominal Pain. rn 08:08 The patient presents with abdominal pain in the lower abdomen. Onset: The rn symptoms/episode began/occurred last night. The symptoms do not radiate. Associated signs and symptoms: Pertinent positives: constipation, nausea, Pertinent negatives: anorexia, blood in stools, fever, shortness of breath, testicular pain, vomiting. The symptoms are described as crampy. Modifying factors: The symptoms are alleviated by nothing, the symptoms are aggravated by touching the area. Severity of pain: At its worst the pain was moderate in the emergency department the pain has improved. The patient has not experienced similar symptoms in the past. The patient has not recently seen a physician. Historical: - Allergies: 06:58 Codeine; pf1 - PMHx: 06:58 Hypertensive disorder; AFIB; pf1 - PSHx: 06:58 Vasectomy; pf1 - Immunization history:: Adult Immunizations up to date, Client reports receiving the Александр \T\ Александр single-dose vaccine. Last tetanus immunization: > 10 years ago Flu vaccine is up to date. - Social history:: Smoking status: Patient denies any tobacco usage or history of. Patient uses alcohol, but reports only rare drinking. Patient/guardian denies using street drugs. - Family history:: not pertinent. - Hospitalizations: : No recent hospitalization is reported. ROS: 08:08 Constitutional: Negative for fever, chills, and weight loss, Cardiovascular: Negative rn for chest pain, palpitations, and edema, Respiratory: Negative for shortness of breath, cough, wheezing, and pleuritic chest pain, Abdomen/GI: Negative for vomiting, diarrhea MS/Extremity: Negative for injury and deformity, Skin: Negative for injury, rash, and discoloration, Neuro: Negative for headache, weakness, numbness, tingling, and seizure. Exam: 08:08 Constitutional: This is a well developed, well nourished patient who is awake, alert rn Head/Face: Normocephalic, atraumatic. ENT: dry MM Cardiovascular: Bradycardic, regular. No pulse deficits. Respiratory: No increased work of breathing, no retractions or nasal flaring. Abdomen/GI: soft, + mild lower abd tenderness Skin: Warm, dry MS/ Extremity: Pulses equal, no cyanosis. Neuro: Awake and alert, GCS 15 Vital Signs: 06:54 BP 117 / 64; Pulse 57; Resp 18; Temp 97.6; Pulse Ox 100% on R/A; Weight 86.18 kg; pf1 Height 5 ft. 10 in. ; Pain 5/10; 09:21 BP 122 / 67; Pulse 80; Resp 16; Pulse Ox 96% ; bp 10:24 BP 146 / 74; Pulse 78; Resp 16; Pulse Ox 100% ; bp 06:54 Body Mass Index 27.26 (86.18 kg, 177.8 cm) pf1 06:54 Pain Scale: Adult pf1 MDM: 07:01 Patient medically screened. rn 10:00 Differential diagnosis: appendicitis, bowel obstruction, cholecystitis, Cholelithiasis, rn diverticulitis, gastritis, non-specific abd pain, pancreatitis, Ureterolithiasis. Data reviewed: vital signs, nurses notes, lab test result(s), radiologic studies, CT scan, and as a result, I will discharge patient. Counseling: I had a detailed discussion with the patient and/or guardian regarding: the historical points, exam findings, and any diagnostic results supporting the discharge/admit diagnosis, lab results, radiology results, the need for outpatient follow up, to return to the emergency department if symptoms worsen or persist or if there are any questions or concerns that arise at home. Response to treatment: the patient's symptoms have mildly improved after treatment, and as a result, I will discharge patient. Special discussion: Based on the patient's Hx, exam, and Dx evaluation, there is no indication for emergent surgery or inpatient Tx. It is understood by the patient/guardian that if the Sx's persist or worsen they need to return immediately for re-evaluation. I discussed with the patient/guardian in detail that at this point there is no indication for admission to the hospital. It is understood, however, that if the symptoms persist or worsen the patient needs to return immediately for re-evaluation. Based on the history and exam findings, there is no indication for further emergent testing or inpatient evaluation. I discussed with the patient/guardian the need to see the retoucher for further evaluation of the symptoms. I discussed with the patient/guardian the need to see the general surgeon for further evaluation of the symptoms. ED course: Pt with uncomplicated acute diverticulitis, pain improved, normal vitals, will dc home with abx and return precautions. 02/10 07:08 Order name: CBC with Diff rn 02/10 07:08 Order name: CMP; Complete Time: 08:46 rn 02/10 07:08 Order name: Lipase; Complete Time: 08:46 rn 02/10 07:08 Order name: Urinalysis w/ reflexes; Complete Time: 08:46 rn 02/10 07:08 Order name: CT Abd/Pelvis - IV Contrast Only; Complete Time: 09:02 rn 02/10 07:08 Order name: IV Saline Lock; Complete Time: 07:27 rn 02/10 07:08 Order name: Labs collected and sent; Complete Time: 08:00 rn 02/10 07:55 Order name: Labs - recollect needed: recollect green and lavender top; Complete Time: bd 08:57 Administered Medications: 07:27 Drug: NS 0.9% IV 1000 ml Route: IV; Rate: 1 bolus; Site: right forearm; bp 10:26 Follow up: IV Status: Completed infusion; IV Intake: 1000ml bp 07:27 Drug: Ondansetron IVP 4 mg Route: IVP; Site: right forearm; bp 10:26 Follow up: Response: No adverse reaction bp 09:09 Not Given (Duplicate Order): Ciprofloxacin IVPB 400 mg 200 ml IVPB once over 60 mins rn 09:20 Drug: metroNIDAZOLE IVPB 500 mg Volume: 100 ml; Route: IVPB; Rate: 200 ml/hr; Infused bp Over: 30 mins; Site: right forearm; 10:26 Follow up: IV Status: Completed infusion; IV Intake: 100ml bp 09:21 Drug: Rocephin IV 1 grams Route: IV; Rate: calculated rate; Site: right forearm; bp 10:26 Follow up: IV Status: Completed infusion; IV Intake: 100ml bp Disposition Summary: 02/10/23 10:18 Discharge Ordered Location: Home rn Problem: new rn Symptoms: have improved rn Condition: Stable rn Diagnosis - Diverticulosis of large intestine without perforation or abscess without bleeding rn Followup: rn - With: Private Physician - When: As needed - Reason: Recheck today's complaints, Re-evaluation by your physician Discharge Instructions: - Discharge Summary Sheet rn - High-Fiber Eating Plan rn - Diverticulitis rn - Diverticulosis rn Forms: - Medication Reconciliation Form rn - Thank You Letter rn - Antibiotic rn discharge - Prescription Opioid Use rn - Patient Portal Instructions rn Prescriptions: - ondansetron 4 mg Oral Tablet,disintegrating - take 1 tablet by ORAL route every 8 hours As needed; 15 tablet; Refills: 0, rn Product Selection Permitted - Flagyl 500 mg Oral Tablet - take 1 tablet by ORAL route every 8 hours for 10 days; 30 tablet; Refills: 0, rn Product Selection Permitted - cefpodoxime 100 mg Oral Tablet - take 2 tablets by ORAL route every 12 hours for 10 days take with food; 40 rn tablet; Refills: 0, Product Selection Permitted Signatures: Dispatcher [employer] EDMS Mandy Joe Roman, MD MD rn Peltier, Brian RN RN Lynette Pineda RN RN pf1
[2023-02-10 10:45] LABS: Blood Morphology Comment NOT SEEN (NOT SEEN); Platelet Estimate ADEQ
[2023-02-10 10:53] VITALS: TEMP 97.6
[2023-02-10 10:56] VITALS: BP 146/74; O2SAT 100
== END 2023-02-10 10:27 | disposition home or self-care (01) ==
LOC: ER 06:40
DX: K57.30 Diverticulosis of large intestine without perforation or abscess without bleeding (principal); I10 Essential (primary) hypertension; I48.91 Unspecified atrial fibrillation; Z88.5 Allergy status to narcotic agent
CPT/HCPCS: 96365; 96361; 85025; 36415; 81003; 83690; 80053; 74177; 96375; 99284; Q9967; J2405; J7030; J0696